=== PATIENT | male | born 1980 | race Caucasian/White ===

== ENCOUNTER → 2024-08-12 | Emergency (ER) | payer BC ==
[~2024-08-12] MED LIST: ACYCLOVIR IVPB ONE; HYDROCODONE/APAP 5/325 MG TAB ONE; METHYLPREDNISOLONE 125 MG INJ ONE; MORPHINE 2 MG/ML SYR ONE; MORPHINE 4 MG/ML SYR ONE; NA CHLORIDE 0.9% 3,000 ML ONE; NA CHLORIDE 0.9% 500 ML ONE; NA CHLORIDE 0.9% IVPB ONE; ONDANSETRON 4 MG/2 ML VIAL ONE
[2024-08-12 14:45] LABS: Blood Gas Oxyhemoglobin 18.9 % (94-97); Blood Gas THB 13.9 g/dl (12-18); Blood O2 Saturation 19.5 % (92-98.5)
[2024-08-12 14:45] LABS: Absolute Lymphocytes (CBC) 0.8 K/uL (0.7-4.9); Absolute Monocytes 0.5 K/uL (0.1-1.3); Absolute Neutrophil 5.7 K/uL (1.8-8.0); Basophils % 0.4 % (0-1.3); Eosinophils % 0.6 % (0-4.4); Hematocrit 41.9 % (39.6-49.0); Hemoglobin 14.4 g/dL (13.6-17.9); Lymphocytes % 11.5 % (15.3-44.8); MCH 31.2 pg (27.0-35.0); MCHC 34.4 g/dL (32.0-36.0); MCV 90.7 fL (80-100); MPV 7.7 fL (7.6-11.3); Monocytes % 7.5 % (3.3-12.3); Platelets 207 thou/uL (152-406); RBC Red Blood Cell Count 4.62 M/uL (4.33-5.43); Red Cell Distribution Width 13.6 % (12.1-15.2)
[2024-08-12 14:56] LABS: PT Prothrombin Time 11.9 SECONDS (9.4-12.5); PTT, Activated Partial Thromb 28.4 SECONDS (24.3-36.9); Protime INR 1.06
--- NOTE | 2024-08-12 15:02 | RAD REPORT ---
EXAMINATION: CT MAXILLOFACIAL WITHOUT CONTRAST CLINICAL INDICATION: PAIN TECHNIQUE: Axial images were obtained through the facial bones and orbits without intravenous contras t. Sagittal and coronal reconstructions were created from the data. One or more of the following dose reduction techniques were used: Automated exposure control, adjustment of the mA and/or kV accor ding to patient size, and/or iterative reconstruction. Unless otherwise specified, incidental findings do not require dedicated imaging follow-up. COMPARISON: No prior exam. FINDINGS: SOFT TISSUE: Pronounced right periorbital soft tissue swelling, extending along the right cheek, skin overlying the right parotid region, and right forehead medially. Swelling and fat stranding also extends towards the parotid tail and posterior cervical triangle. Mildly prominent discrete level 1-3 right cervical lymph nodes, likely of infectious or inflammatory nature. No appreciable fluid collections. BONES: No evidence of fracture, dislocation, or aggressive osseous lesions. No lesion of the visuali zed skull base or calvarium. ORBITS: The globes are intact. No intraorbital hemorrhage or mass. SINUSES: The paranasal sinuses and tympanomastoid cavities are predominantly clear. IMPRESSION: Pronounced right periorbital, right cheek, and right parotid region skin and subcutaneous soft tissue swelling, without evidence of a discrete fluid collection. Fat stranding also extends towards the parotid tail and posterior cervical triangle. Findings may suggest cellulitis or viral infection such as varicella-zoster, among other considerations. Multiple discrete prominent level 1-3 right cervical lymph nodes No acute osseous or intraorbital abnormality.
--- NOTE | 2024-08-12 15:17 | ER ---
Nurse's Notes [facility] Name: Lyle Anderson Age: 44 yrs Sex: Male : 1980 Arrival Date: 08/12/2024 Time: 11:26 Bed 13 Private MD: Diagnosis: Herpesviral infection, unspecified;Cellulitis of face Presentation: 08/12 11:55 Chief complaint: Patient states: last Sunday started to have tension headache, R ear tm6 hurt, back of R eye hurt. Went to urgent care on Sunday, got steroid injection and naproxen. R eye was red with a lot of pressure, right side of head was swollen. Went to another ER , they did a CT, said he was clear - -diagnosis was cluster migraine and conjunctivitis. Been using antibiotics, but R eye and swelling has gotten worse. Cannot open right eye. Developed sores on top of head. Coronavirus screen: Client denies travel out of the [place] in the last 14 days. Ebola Screen: Patient negative for fever greater than or equal to 101.5 degrees Fahrenheit, and additional compatible Ebola Virus Disease symptoms Patient denies exposure to infectious person. Patient denies travel to an Ebola-affected area in the 21 days before illness onset. No symptoms or risks identified at this time. Mechanism of Injury: No Mechanism of Injury. Initial Sepsis Screen: Does the patient meet any 2 criteria? No. Patient's initial sepsis screen is negative. Does the patient have a suspected source of infection? No. Patient's initial sepsis screen is negative. Risk Assessment: Do you want to hurt yourself or someone else? Patient reports no desire to harm self or others. Onset of symptoms was August 05, 2024. 11:55 Method Of Arrival: Ambulatory tm6 11:55 Acuity: TRISTEN 3 tm6 Triage Assessment: 11:55 General: Appears uncomfortable, Behavior is calm, cooperative. Pain: Complains of pain tm6 in face, right ear and right eye Pain currently is 0 out of 10 on a pain scale. at worst was 10 out of 10 on a pain scale. EENT: Eyes swollen. Reports pain in right eye. Neuro: Level of Consciousness is awake, alert, obeys commands, Oriented to person, place, time, situation. Cardiovascular: Patient's skin is warm and dry. Respiratory: Airway is patent Respiratory effort is even, unlabored, Respiratory pattern is regular, symmetrical. GI: No signs and/or symptoms were reported involving the gastrointestinal system. Abdomen is flat, non-distended. : No signs and/or symptoms were reported regarding the genitourinary system. Derm: swelling of eye, drainage from eye, sores on head. Musculoskeletal: No signs and/or symptoms reported regarding the musculoskeletal system. Historical: - Allergies: 12:02 No Known Allergies; tm6 - PMHx: 12:02 None; tm6 - PSHx: 12:02 left knee scope; tm6 - Immunization history:: Client reports receiving the 2nd dose of the Covid vaccine. - Infectious Disease History:: Denies. - Social history:: Smoking status: Patient denies any tobacco usage or history of. Patient uses alcohol, only on a social basis. Screenin:41 [facility] ED Fall Risk Assessment (Adult) History of falling in the last 3 months, kc6 including since admission No falls in past 3 months (0 pts) Confusion or Disorientation No (0 pts) Intoxicated or Sedated No (0 pts) Impaired Gait No (0 pts) Mobility Assist Device Used No (0 pt) Altered Elimination No (0 pt) Score/Fall Risk Level 0 - 2 = Low Risk Oriented to surroundings. Abuse screen: Denies threats or abuse. Denies injuries from another. Nutritional screening: No deficits noted. Tuberculosis screening: No symptoms or risk factors identified. Assessment: 13:41 General: Appears in no apparent distress. comfortable, well groomed, well developed, kc6 Behavior is calm, cooperative, appropriate for age, quiet. Pain: Complains of pain in right eye and right ear Pain currently is 5 out of 10 on a pain scale. Neuro: Level of Consciousness is awake, alert, obeys commands, Oriented to person, place, time, situation, Appropriate for age Reports blurred vision in right eye headache. Cardiovascular: Capillary refill < 3 seconds. Respiratory: Airway is patent Trachea midline Respiratory effort is even, unlabored, Respiratory pattern is regular, symmetrical. GI: No signs and/or symptoms were reported involving the gastrointestinal system. : No signs and/or symptoms were reported regarding the genitourinary system. EENT: Sclera/Cornea are reddened in iris of right eye and inner aspect of conjuctiva of right eye. Derm: Skin is healthy with good turgor, has blisters on the right eye and forehead Skin is dry, Skin is normal, Skin temperature is warm Rash noted that is draining clear fluid, red, raised, vesicular, on right eye. Musculoskeletal: Circulation, motion, and sensation intact. Capillary refill < 3 seconds, Range of motion: intact in all extremities, Swelling present in right eye. 15:02 Reassessment: Patient appears in no apparent distress at this time. No changes from kc6 previously documented assessment. Patient and/or family updated on plan of care and expected duration. Pain level reassessed. Patient is alert, oriented x 3, equal unlabored respirations, skin warm/dry/pink. 16:08 Reassessment: Patient appears in no apparent distress at this time. No changes from kc6 previously documented assessment. Patient and/or family updated on plan of care and expected duration. Pain level reassessed. Patient is alert, oriented x 3, equal unlabored respirations, skin warm/dry/pink. 17:10 Reassessment: Patient appears in no apparent distress at this time. No changes from kc6 previously documented assessment. Patient and/or family updated on plan of care and expected duration. Pain level reassessed. Patient is alert, oriented x 3, equal unlabored respirations, skin warm/dry/pink. 18:27 Reassessment: Patient appears in no apparent distress at this time. No changes from kc6 previously documented assessment. Patient and/or family updated on plan of care and expected duration. Pain level reassessed. Patient is alert, oriented x 3, equal unlabored respirations, skin warm/dry/pink. pt provided warm wash cloth and ice pack for eye. 18:47 Reassessment: Sofía Anderson () [phone]. kc6 20:00 Reassessment: Patient appears in no apparent distress at this time. Patient and/or jb4 family updated on plan of care and expected duration. Pain level reassessed. Patient is alert, oriented x 3, equal unlabored respirations, skin warm/dry/pink. 20:41 Reassessment: Patient appears in no apparent distress at this time. Patient and/or jb4 family updated on plan of care and expected duration. Pain level reassessed. Patient is alert, oriented x 3, equal unlabored respirations, skin warm/dry/pink. Reassessment: Pt being transferred to receiving facility via EMS. Vital Signs: 11:55 BP 131 / 93; Pulse 62; Resp 19; Temp 98.4(O); Pulse Ox 100% on R/A; MAP 104 mmHg; tm6 Weight 113.4 kg; Height 6 ft. 1 in. ; Pain 3/10; 13:40 BP 141 / 87; Pulse 68; Resp 18 S; Temp 98.8(O); Pain 5/10; kc6 15:02 BP 136 / 84; Pulse 49; Resp 15 S; Pulse Ox 98% on R/A; kc6 16:08 BP 132 / 79; Pulse 55; Resp 16 S; Pulse Ox 100% on R/A; kc6 18:27 BP 139 / 76; Pulse 65; Resp 19 S; Pulse Ox 100% on R/A; kc6 11:55 Body Mass Index 32.98 (113.40 kg, 185.42 cm) tm6 11:55 Pain Scale: Adult tm6 13:40 Pain Scale: Adult kc6 ED Course: 11:27 Patient arrived in ED. im 11:55 Arm band placed on right wrist. tm6 12:01 Triage completed. tm6 12:12 Goldie Richards MD is Attending Physician. gb1 13:08 Joellen Tran, RN is Primary Nurse. kc6 13:41 Patient has correct armband on for positive identification. Bed in low position. Call kc6 light in reach. Side rails up X 1. Adult w/ patient. Pulse ox on. NIBP on. Door closed. Noise minimized. Lights dimmed. Warm blanket given. Pillow given. 13:41 Patient maintains SpO2 saturation greater than 95% on room air. kc6 13:49 Assist provider with eye exam of right eye. using fluorescein stain, Performed by Goldie Richards MD Patient tolerated well. 14:08 CT Facial Bones W/O Con In Process Unspecified. EDMS 14:10 Inserted saline lock: 20 gauge in right forearm, using aseptic technique. Blood kc6 collected. Flushed with 10 mL NS. 15:15 Cedric Mccann is Hospitalizing Provider. gb1 16:08 Patient admitted, IV remains in place. kc6 17:14 CM met with patient and his Sofía at the bedside in the ED exam room. Patient ane identified by name and . Demographic sheet confirmed. Patient and are not from the local area and had concerns about potential transfer to other hospital facility. Prior to admission, patient performs ADLs independently .Couple is here staying in their camper and are concerned about their 2 small dogs. No HH, or medical services, patient does have CPAP machine but has been unable to use since eye infection. Sofía is wanting clarification on plan whether admission or transfer so they can work out logistics of dog care and camper. 1727 CM and ER doctor, Dr. Richards at bedside to discuss plan of care. 1823 CM provided local information on dog boarding. Sofía inquired about pet friendly hotels, perhaps in the [place] area as well. 1830 CM provided information and contact info pet friendly accommodations in the [facility]. CM team will continue to follow and coordinate care. 18:00 initiated transfer to [facility]. bd 20:41 Provided Education on: need for transfer.. jb4 Administered Medications: 14:39 Drug: NS 0.9% IV (30 ml/kg) 30 ml/kg IV at bolus once; Sepsis Protocol Route: IV; Rate: kc6 bolus; Site: right antecubital; 16:40 Follow up: Response: No adverse reaction; IV Status: Completed infusion; IV Intake: kc6 3402ml 14:39 Drug: acyclovir 10 mg/kg IV at bolus once Route: IV; Rate: bolus; Site: right kc6 antecubital; 16:07 Follow up: Response: No adverse reaction; IV Status: Completed infusion; IV Intake: kc6 250ml 14:39 Drug: MethylPrednisoLONE IVP 125 mg IVP once Route: IVP; Site: right antecubital; kc6 15:03 Follow up: Response: No adverse reaction 6 14:39 Drug: morphine IVP or IV 5 mg IVP once over 4 mins Route: IVP; Infused Over: 4 mins; kc6 Site: right antecubital; 15:03 Follow up: Response: No adverse reaction; Pain is decreased; RASS: Alert and Calm (0) 6 14:39 Drug: Ondansetron IVP 4 mg IVP once; over 2 minutes Route: IVP; Site: right antecubital;kc6 15:03 Follow up: Response: No adverse reaction kc6 20:40 Drug: HYDROcodone-acetaminophen PO 5 mg-325 mg 1 tabs PO once Route: PO; jb4 20:40 Follow up: Response: Medication Administered at Departure jb4 Medication: 16:08 VIS not applicable for this client. kc6 Intake: 16:07 IV: 250ml; Total: 250ml. kc6 16:40 IV: 3402ml; Total: 3652ml. kc6 Outcome: 15:17 Decision to Hospitalize by Provider. gb1 16:08 Admitted to ER Hold. Please see [facility] for further documentation. kc6 16:08 Condition: good 16:08 Instructed on the need for admit, 20:42 Transferred by ground EMS . to [facility], Transfer form jb4 completed. 20:42 Condition: stable 20:42 Discharge instructions given to patient, Instructed on the need for transfer, Demonstrated understanding of instructions, 20:43 Patient left the ED. jb4 Signatures: Dispatcher [employer] EDMS Alicia Samuel James RN RN jb4 Joellen Tran RN RN kc6 Tiana Fuentes Gina, MD MD gb1 Luiz Cueva RN RN tm6 Tracy Villalpando RN RN ane Corrections: (The following items were deleted from the chart) 15:04 13:41 Derm: Skin is healthy with good turgor, Skin is pink, warm \T\ dry. kc6 kc6
--- NOTE | 2024-08-12 15:17 | EDPHYS ---
Physician Documentation [facility] Name: Lyle Anderson Age: 44 yrs Sex: Male : 1980 Arrival Date: 08/12/2024 Time: 11:26 Bed 13 Private MD: ED Physician Goldie Richards HPI: 08/12 14:40 This 44 yrs old Male presents to ER via Ambulatory with complaints of gb1 Drainage From Eye, Eye Pain, Eye Problem. 14:43 44-year-old male with drainage from the right eye and blisters on the right forehead gb1 into the right scalp that started just yesterday. Patient prior to that had clear drainage from the eye and itchiness. He states that he felt a burning on his forehead but no rash since yesterday. He also did go to urgent care they given some antibiotics and steroid injection and discharged him. Patient is camping here with his they are from out of town. They are currently staying in the [facility] [place].. Historical: - Allergies: 12:02 No Known Allergies; tm6 - PMHx: 12:02 None; tm6 - PSHx: 12:02 left knee scope; tm6 - Immunization history:: Client reports receiving the 2nd dose of the Covid vaccine. - Infectious Disease History:: Denies. - Social history:: Smoking status: Patient denies any tobacco usage or history of. Patient uses alcohol, only on a social basis. Exam: 14:40 Visual Acuity: The patient's visual acuity was not tested, because the patient was not gb1 able to be examined, 14:43 Visual Acuity: The patient's visual acuity was not tested, because the patient was not 1 able to be examined, 14:43 Constitutional: This is a well developed, well nourished patient who is awake, alert, and in no acute distress. Eyes: Pupils equal round and reactive to light, extra-ocular motions intact. Lids and lashes crusty with dried drainage. Conjunctiva and sclera are non-icteric and injected. Cornea within normal limits. Periorbital areas with swelling, redness, and edema on the right. No uptake or dendrites seen on fluoroscopy ENT: Nares patent. No nasal discharge, no septal abnormalities noted. Tympanic membranes are normal and external auditory canals are clear. Oropharynx with no redness, swelling, or masses, exudates, or evidence of obstruction, uvula midline. Mucous membranes moist. Neck: Trachea midline, no thyromegaly or masses palpated, and no cervical lymphadenopathy. Supple, full range of motion without nuchal rigidity, or vertebral point tenderness. No Meningismus. Chest/axilla: Normal chest wall appearance and motion. Nontender with no deformity. No lesions are appreciated. Cardiovascular: Regular rate and rhythm with a normal S1 and S2. No gallops, murmurs, or rubs. Normal PMI, no JVD. No pulse deficits. Respiratory: Lungs have equal breath sounds bilaterally, clear to auscultation and percussion. No rales, rhonchi or wheezes noted. No increased work of breathing, no retractions or nasal flaring. Abdomen/GI: Soft, non-tender, with normal bowel sounds. No distension or tympany. No guarding or rebound. No evidence of tenderness throughout. Back: No spinal tenderness. No costovertebral tenderness. Full range of motion. MS/ Extremity: Pulses equal, no cyanosis. Neurovascular intact. Full, normal range of motion. Neuro: Awake and alert, GCS 15, oriented to person, place, time, and situation. Cranial nerves II-XII grossly intact. Motor strength 5/5 in all extremities. Sensory grossly intact. Cerebellar exam normal. Normal gait. Vital Signs: 11:55 BP 131 / 93; Pulse 62; Resp 19; Temp 98.4(O); Pulse Ox 100% on R/A; MAP 104 mmHg; tm6 Weight 113.4 kg; Height 6 ft. 1 in. ; Pain 3/10; 13:40 BP 141 / 87; Pulse 68; Resp 18 S; Temp 98.8(O); Pain 5/10; kc6 15:02 BP 136 / 84; Pulse 49; Resp 15 S; Pulse Ox 98% on R/A; kc6 16:08 BP 132 / 79; Pulse 55; Resp 16 S; Pulse Ox 100% on R/A; kc6 18:27 BP 139 / 76; Pulse 65; Resp 19 S; Pulse Ox 100% on R/A; kc6 11:55 Body Mass Index 32.98 (113.40 kg, 185.42 cm) tm6 11:55 Pain Scale: Adult tm6 13:40 Pain Scale: Adult kc6 MDM: 12:16 Patient medically screened. gb1 14:40 Differential diagnosis: Corneal ulcer of Foreign body in Acute iritis of right eye. gb1 Acute glaucoma in Ultraviolet keratitis in. 14:48 Data reviewed: vital signs, nurses notes, lab test result(s), CBC, electrolytes, EKG. gb1 ED course: Pt with acute RT zoster ophthalmicus. Tip of the nose is not involved. No dendrites on fluoro uptake exam. Pt is afebrile and otherwise well appearing, No change in mental status. IV acyclovir given with plans for hospital admission.. 18:15 ED course: I spoke with Ophthalmology communications station manager for this patient, and he will see patient gb1 at [facility]. Dr. Constantino will admit to her hospitalist service.. 08/12 13:58 Order name: Blood Culture Adult (2) [facility] 08/12 13:58 Order name: CBC with Diff; Complete Time: 15:11 08/12 13:58 Order name: CMP; Complete Time: 17:10 08/12 13:58 Order name: Lactate w/ 2H reflex if indic.; Complete Time: 17:10 08/12 13:58 Order name: Protime (+inr); Complete Time: 15:11 08/12 13:58 Order name: Ptt, Activated; Complete Time: 15:11 08/12 13:58 Order name: Hemoglobin A1c 08/12 13:58 Order name: BETA HYDROXYBUTYRATE; Complete Time: 17:10 08/12 13:58 Order name: ABG: VBG; Complete Time: 15:11 08/12 13:58 Order name: CT Facial Bones W/O Con; Complete Time: 15:11 08/12 13:58 Order name: Accucheck; Complete Time: 14:39 08/12 13:58 Order name: Cardiac monitoring; Complete Time: 14:39 08/12 13:58 Order name: EKG - Nurse/Tech; Complete Time: 14:39 08/12 13:58 Order name: IV Saline Lock - Large Bore; Complete Time: 14:39 08/12 13:58 Order name: Labs collected and sent; Complete Time: 14:39 08/12 13:58 Order name: O2 Per Protocol; Complete Time: 13:59 gb1 08/12 13:58 Order name: O2 Sat Monitoring; Complete Time: 13:59 gb1 08/12 13:58 Order name: Vital Signs; Complete Time: 13:59 gb1 Administered Medications: 14:39 Drug: NS 0.9% IV (30 ml/kg) 30 ml/kg IV at bolus once; Sepsis Protocol Route: IV; Rate: kc6 bolus; Site: right antecubital; 16:40 Follow up: Response: No adverse reaction; IV Status: Completed infusion; IV Intake: kc6 3402ml 14:39 Drug: acyclovir 10 mg/kg IV at bolus once Route: IV; Rate: bolus; Site: right kc6 antecubital; 16:07 Follow up: Response: No adverse reaction; IV Status: Completed infusion; IV Intake: kc6 250ml 14:39 Drug: MethylPrednisoLONE IVP 125 mg IVP once Route: IVP; Site: right antecubital; kc6 15:03 Follow up: Response: No adverse reaction kc6 14:39 Drug: morphine IVP or IV 5 mg IVP once over 4 mins Route: IVP; Infused Over: 4 mins; kc6 Site: right antecubital; 15:03 Follow up: Response: No adverse reaction; Pain is decreased; RASS: Alert and Calm (0) kc6 14:39 Drug: Ondansetron IVP 4 mg IVP once; over 2 minutes Route: IVP; Site: right antecubital;kc6 15:03 Follow up: Response: No adverse reaction kc6 20:40 Drug: HYDROcodone-acetaminophen PO 5 mg-325 mg 1 tabs PO once Route: PO; jb4 20:40 Follow up: Response: Medication Administered at Departure jb4 Disposition Summary: 08/12/24 15:17 Hospitalization Ordered Notes: Hospitalization Status: Inpatient Admission gb1 Provider: Cedric Mccann gb1 Location: Telemetry/MedSurg (Inpatient) gb1 Condition: Stable gb1 Problem: an acute exacerbation gb1 Symptoms: have worsened gb1 Bed/Room Type: Standard [facility] Room Assignment: [facility] Diagnosis - Herpesviral infection, unspecified gb1 - Cellulitis of face gb1 Forms: - Medication Reconciliation Form gb1 - SBAR form gb1 - Leadership Thank You Letter gb1 Signatures: Dispatcher [employer] EDMS Page, Wei, PA PA cp Sheridan, Osvaldo, RN RN jb4 Joellen Tran RN RN kc6 Goldie Richards MD MD gb1 Luiz Cueva RN RN tm6
[2024-08-12 15:30] LABS: ALT/SGPT 22 U/L (16-61); Albumin 4.1 g/dL (3.4-5.0); Albumin/Globulin Ratio 1.2 (1.1-1.8); Alkaline Phosphatase 63 U/L (45-117); Anion Gap 9.4 mEq/L (5.0-15.0); BETA HYDROXYBUTYRATE 0.14 mmol/L (0.02-0.27); BUN Blood Urea Nitrogen 20 mg/dL (7-18); Bicarbonate 29 mEq/L (21-32); Bilirubin Total 0.8 mg/dL (0.2-1.0); Globulin 3.5 g/dL (2.3-3.5); Glomerular Filtration Rate 81 ml/min (=/>90); Glucose Level 106 mg/dL (74-106); Potassium 4.4 mEq/L (3.5-5.1); Protein, Total 7.6 g/dL (6.4-8.2); Sodium Level 135 mEq/L (136-145)
[2024-08-12 15:31] LABS: AST/SGOT < 10 U/L (15-37)
--- NOTE | 2024-08-12 18:54 | P.CNS ---
Date of Consult: 08/12/24 Allergies No Known Allergies Allergy (Unverified 08/12/24 14:19) Physical Examination Laboratory Data (last 24 hrs) 08/12/24 08/12/24 08/12/24 14:15 14:15 14:15 WBC 7.10 Hgb 14.4 Hct 41.9 Plt Count 207 PT 11.9 INR 1.06 APTT 28.4 Sodium 135 L Potassium 4.4 BUN 20 H Creatinine 1.13 Glucose 106 Total Bilirubin 0.8 AST < 10 L ALT 22 Alkaline Phosphatase 63
[2024-08-13 00:28] VITALS: TEMP 98.8
[2024-08-13 00:31] VITALS: O2SAT 100
[2024-08-13 00:33] VITALS: BP 139/76
--- NOTE | 2024-08-13 12:57 | EKG ---
Test Date: 2024-08-12 Test Time: 14:13:18 Lab Head: PAT MEASUREMENT RESULTS: Intervals: Rate: 64 NC: 136 QRSD: 104 QT: 394 QTc: 406 [place]: P: 74 NC: 136 QRS: 67 T: 44 INTERPRETIVE STATEMENTS: Normal sinus rhythm with sinus arrhythmia Normal ECG No previous ECG available for comparison Electronically Signed On 08-13-24 12:54:35 CDT by Venkat Portillo
== END ==
LOC: ER 11:26
DX: B00.9 Herpesviral infection, unspecified (principal); L03.211 Cellulitis of face
CPT/HCPCS: 96365; 96368; 93005; 87040 ×2; 85025; 36415; 85610; 83605; 85730; 80053; 82010; 70486; 76377; 82805; 96375; 99285; 96366; J2270; J0133; J2919; J2405; J7040; J7030